=== PATIENT | male | born 1985 | race Caucasian/White ===

== ENCOUNTER → 2016-10-28 | Outpatient (CLI) | payer OTHER ==
[~2016-10-28] MED LIST: ESOM20CA PO; HYDR-5688 PO; PROM25TA9 PO; SINCALIDE INJ 2.1 MCG in SODIUM CHLORIDE 0.9% 100ML 100 ML IV ONE
--- NOTE | 2016-10-28 14:26 | DIAGNOSTIC IMAGING REPORT ---
NUCLEAR HEPATOBILIARY SCAN WITH EJECTION FRACTION IMAGING CLINICAL HISTORY: Right upper quadrant abdominal pain. COMPARISON STUDY: No priors. TECHNIQUE: Dynamic images of the liver and anterior abdomen were obtained every 5 minutes for a total of 60 minutes following the IV administration of 5.3mCi of technetium 99m Choletec. 2.1 mcg of sincalide was then injected with additional images acquired every 5 minutes for 45 minutes to calculate the gallbladder ejection fraction. FINDINGS: The hepatobiliary scan shows prompt and homogeneous hepatic uptake. There is visualized activity within the intra and extrahepatic biliary tree at 10 minutes, and within the gallbladder at 10 minutes. There is normal biliary to bowel transit, with small bowel visualized by 16 minutes. On the sincalide imaging, the gallbladder ejection fraction was measured at 31%. IMPRESSION: 1. There is no scintigraphic evidence of cholecystitis. 2. The gallbladder ejection fraction measured 31% which is slightly diminished (normal is 35% or greater). Electronically signed by: Al Dunbar M.D. 10/28/2016 2:23 PM Dictated Date/Time: 10/28/2016 2:21 PM
== END | disposition home or self-care (01) ==
LOC: C.NUCL 07:38
PROVIDERS: ATTEND Internal Medicine
DX: R10.9 Unspecified abdominal pain (principal)

== ENCOUNTER → 2016-11-15 | Day surgery (SDC) | payer OTHER ==
[2016-11-03 12:01] VITALS: BMI 32.0
[~2016-11-15] VITALS: Ht 180.3 cm; Wt 104.5 kg
[~2016-11-15] MED LIST changes: +FENTANYL CITRATE INJ 50 MCG/1 ML 2 ML VIAL ONE; +MIDAZOLAM HCL 5 MG/ML 1 ML VIAL ONE; -SINCALIDE INJ 2.1 MCG in SODIUM CHLORIDE 0.9% 100ML 100 ML IV ONE; +SODIUM CHLORIDE 0.9% 500ML 500 ML IV ONE
[2016-11-15 11:07] VITALS: Ht 180.3 cm; Wt 104.5 kg
[2016-11-15 11:12] VITALS: TEMP 36.6
--- NOTE | 2016-11-15 11:45 | Endo History and Physical ---
History & Physical Date of Service: Nov 15, 2016. Chief Complaint: abdominal pain Referring Physician: KIMBERLEE Bui History of Present Illness 30 yo CM who presents for EGD secondary to abdominal pain. Past Surgical History Hx Cardiac Surgery: No Hx Internal Defibrillator: No Hx Pacemaker: No Hx Abdominal Surgery: No Hx of Implantable Prosthesis: No Hx Post-Op Nausea and Vomiting: No Hx Cancer Surgery: No Hx Thoracic Surgery: No Hx Orthopedic: No Hx Urinary Tract Surgery: No Family History IBD Social History Smoking Status: Never Smoker Hx Substance Use: No Hx Alcohol Use: Yes (OCCASSIONALLY) Allergies Coded Allergies: No Known Allergies (Verified , 11/15/16) Current Medications Reported Home Medications Medications Dose Route/Sig Max Daily Dose Days Date Category Nexium (Esomeprazole Magnesium) 20 Mg Capcr 20 Mg PO DAILY 11/15/16 Reported Vital Signs Weight (Kilograms): 104.55 Height (Feet): 5 Height (Inches): 11 Date Time Temp Pulse Resp B/P Pulse Ox O2 Delivery O2 Flow Rate FiO2 11/15/16 11:39 80 20 154/88 98 Room Air 11/15/16 11:12 36.6 80 18 156/82 100 Room Air Physical Exam General Appearance: WD/WN, no apparent distress Respiratory/Chest: Auscultation: breath sounds normal Cardiovascular: Heart Auscultation: RRR Abdomen: Bowel Sounds: normal Inspection & Palpation: soft, non-distended, no tenderness, guarding & rebound Assessment and Plan Assessment: 30 yo CM who presents for EGD secondary to abdominal pain. Plan: Proceed with EGD.
--- NOTE | 2016-11-15 12:09 | Discharge Instructions ---
Endoscopy Patient Instructions Date / Procedure(s) Performed Nov 15, 2016. EGD Allergy Information Coded Allergies: No Known Allergies (Verified , 11/15/16) Discharge Date / Findings Nov 15, 2016. Reflux esophagitis Hiatal hernia Medication Instructions OK to resume all medications today as prescribed Reported Home Medications Medications Dose Route/Sig Max Daily Dose Days Date Category Nexium (Esomeprazole Magnesium) 20 Mg Capcr 20 Mg PO DAILY 11/15/16 Reported Provider Instructions Activity Restrictions - No exercising or heavy lifting for 24 hours. - Do not drink alcohol the day of the procedure. - Do not drive a car or operate machinery until the day after the procedure. - Do not make any important decisions or sign important papers in 24 hours after the procedure. Following Day: - Return to full activity which may include returning to work/school. Diet Start your diet with liquids and light foods (jello, soup, juice, toast). Then eat your usual diet if not nauseated. Treatment For Common After Affects For mild abdominal pain, bloating, or excessive gas: - Rest - Eat lightly - Lie on right side Follow-Up Information Follow-up with KIMBERLEE Bui as scheduled Anesthesia Information What You Should Know You have had a procedure that required some medicine to reduce anxiety and discomfort. This treatment is called moderate sedation. After receiving the treatment, you may be sleepy, but you will be able to breathe on your own. The effects of the treatment may last for several hours. Follow these instructions along with Activity/Diet recommendations noted above: * Do NOT do anything where dizziness or clumsiness would be dangerous. * Rest quietly at home today, then you can be up and about tomorrow. * Have a responsible person stay with you the rest of today. * You may have had an I.V. today. If so, you may take the dressing off later today. Recommendations Call your doctor if: * Trouble breathing * Continuous vomiting for more than 24 hours * Temperature above 101 degrees * Severe abdominal pain or bloating * Pain not relieved by pain medicine ordered * There is increased drainage or redness from any incision * A large amount of rectal bleeding greater than 2-3 tablespoons. (If you had a polyp/s removed or have hemorrhoids, a small amount of blood - from the rectum is to be expected.) * You have any unanswered questions or concerns. IN THE EVENT OF A SERIOUS EMERGENCY, GO TO THE NEAREST EMERGENCY ROOM Your discharge instructions were prepared by provider Camron Montgomery. Patient Instructions Signature Page Jose Nair Patient (or Guardian) Signature/Date: I have read and understand the instructions given to me by my caregivers. Caregiver/RN/Doctor Signature/Date: The above-named patient and/or guardian has received patient instructions on this date. + Original Patient Signature Page (only) stays with chart. Please make copy for patient.
--- NOTE | 2016-11-15 12:09 | GI REPORT ---
Procedure Date: 11/15/2016 11:26 AM Procedure: Upper GI endoscopy Indications: Epigastric abdominal pain Medicines: Fentanyl 150 micrograms IV, Midazolam 8 mg IV Complications: No immediate complications. Estimated Blood Loss: Estimated blood loss: none. Procedure: Pre-Anesthesia Assessment: - Prior to the procedure, a History and Physical was performed, and patient medications and allergies were reviewed. The patient's tolerance of previous anesthesia was also reviewed. The risks and benefits of the procedure and the sedation options and risks were discussed with the patient. All questions were answered, and informed consent was obtained. Prior Anticoagulants: The patient has taken no previous anticoagulant or antiplatelet agents. ASA Grade Assessment: I - A normal, healthy patient. After reviewing the risks and benefits, the patient was deemed in satisfactory condition to undergo the procedure. After obtaining informed consent, the endoscope was passed under direct vision. Throughout the procedure, the patient's blood pressure, pulse, and oxygen saturations were monitored continuously. The scope was introduced through the mouth, and advanced to the second part of duodenum. The upper GI endoscopy was accomplished without difficulty. The patient tolerated the procedure well. Findings: LA Grade B (one or more mucosal breaks greater than 5 mm, not extending between the tops of two mucosal folds) esophagitis with no bleeding was found. A small hiatus hernia was present. The examined duodenum was normal. Impression: - LA Grade B reflux esophagitis. - Small hiatus hernia. - Normal examined duodenum. - No specimens collected. Recommendation: - Resume previous diet. - Continue present medications. - Return to GI office as previously scheduled. Camron Montgomery DO 11/15/2016 12:09:19 PM This report has been signed electronically. Note Initiated On: 11/15/2016 11:26 AM I attest to the content of the Intraoperative Record and orders documented therein, exceptions below
[2016-11-15 12:45] VITALS: BP 121/76; PULSE 78; O2SAT 100
== END | disposition home or self-care (01) ==
LOC: C.GI 10:47
PROVIDERS: ATTEND Internal Medicine
DX: K21.0 Gastro-esophageal reflux disease with esophagitis (principal); K44.9 Diaphragmatic hernia without obstruction or gangrene; R10.13 Epigastric pain

== ENCOUNTER 2016-12-15 05:14 | Observation (INO) | payer OTHER ==
[2016-12-08 10:11] VITALS: BMI 32.0
[2016-12-15] VITALS (7 sets, daily range): BP systolic 127–149; BP diastolic 79–87; PULSE 63–73; TEMP 36.5–37.1; O2SAT 93–97; Ht 180.3 cm; Wt 104.5 kg
[~2016-12-15] VITALS: Ht 180.3 cm; Wt 104.5 kg
[~2016-12-15 05:14] MED LIST changes: -FENTANYL CITRATE INJ 50 MCG/1 ML 2 ML VIAL ONE; -HYDR-5688 PO; -MIDAZOLAM HCL 5 MG/ML 1 ML VIAL ONE; -PROM25TA9 PO; -SODIUM CHLORIDE 0.9% 500ML 500 ML IV ONE
[2016-12-15 05:47] LABS: HEMATOCRIT 44.4 % (42-52); MEAN CELL VOLUME 84.6 fL (80-100); MEAN CORPUSCULAR HEMOGLOBIN 30.7 pg (25-34); MEAN PLATELET VOLUME 10.4 fL (7.4-10.4); PLATELET COUNT 297 K/uL (130-400); RED BLOOD COUNT 5.25 M/uL (4.7-6.1)
[2016-12-15 05:50] LABS: MEAN CORPUSCULAR HGB CONC 36.3 g/dl (32-36)
[2016-12-15] MEDS ORDERED: LACTATED RINGER'S 1000ML 1,000 ML IV SCH ×2 (06:00→07:57)
[2016-12-15] MEDS ORDERED: CEFUROXIME IV 1,500 MG in DEXTROSE 5% 100ML IV SCH (06:00)
[2016-12-15] MEDS ORDERED: ACETAMINOPHEN 1000 MG/100 ML IV IV ONE (06:04)
[2016-12-15] MEDS ORDERED: MIDAZOLAM HCL 1 MG/ML 2ML VIAL ONE (06:14)
[2016-12-15] MEDS ORDERED: LIDOCAINE HCL 2% 2 ML VIAL (20MG/ML) ONE (06:14)
[2016-12-15] MEDS ORDERED: DEXAMETHASONE SOD INJ 4 MG/ML VIAL ONE (06:14)
[2016-12-15] MEDS ORDERED: PROPOFOL IV EMULSION 10 MG/ML 20 ML VIAL IV ONE ×2 (06:14→08:07)
[2016-12-15] MEDS ORDERED: SUCCINYLCHOLINE CHLORIDE 20 MG/ML 10 ML VIAL IV ONE (06:14)
[2016-12-15] MEDS ORDERED: PHENYLEPHRINE HCL INJ 10 MG/ML VIAL ONE (06:14)
[2016-12-15] MEDS ORDERED: NEOSTIGMINE METHYLSULFATE 5 MG/5 ML SYR ONE (06:14)
[2016-12-15] MEDS ORDERED: ROCURONIUM BROMIDE 10 MG/ML 5 ML VIAL ONE ×2 (06:14→08:07)
[2016-12-15] MEDS ORDERED: ONDANSETRON INJ 2 MG/ML 2 ML VIAL ONE (06:14)
[2016-12-15] MEDS ORDERED: GLYCOPYRROLATE INJ 0.2 MG/ML VIAL ONE (06:14)
[2016-12-15] MEDS ORDERED: FENTANYL CITRATE INJ 50 MCG/1 ML 2 ML VIAL ONE (06:14)
--- NOTE | 2016-12-15 06:31 | History & Physical Bridge Note ---
H&P Re-Evaluation Bridge Note: I have examined the patient, reviewed the History & Physical and in the interval since the performance of the History & Physical I have noted the following changes of clinical significance: No changes noted
[2016-12-15] MEDS ORDERED: BUPIVACAINE 0.5 % 5 MG/1 ML MPF 30ML VIAL ONE (06:38)
[2016-12-15] MEDS ORDERED: HYDROmorphone INJ 2 MG/ML SYR/VIAL ONE (07:08)
--- NOTE | 2016-12-15 07:57 | [facility] Post Operative Brief Note ---
Immediate Operative Summary Operative Date Dec 15, 2016. Pre-Operative Diagnosis Chronic Cholecystitis Post-Operative Diagnosis same, adhesions Procedure(s) Performed Laparoscopic Cholecystectomy Surgeon Dr. Uli Schroeder Construction Superintendent Surgeon(s) Filemon Sandoval PA-C Estimated Blood Loss 10ml Findings adhesions Specimens A.) Gallbladder and contents Anesthesia gen Complication(s) None Disposition Recovery Room / PACU
[2016-12-15] MEDS ORDERED: PROMETHAZINE HCL INJ 25 MG in SODIUM CHLORIDE 0.9% 50ML 50 ML IV PRN (08:00)
[2016-12-15] MEDS ORDERED: ONDANSETRON INJ 2 MG/ML 2 ML VIAL IV PRN ×2 (08:00→08:15)
[2016-12-15] MEDS ORDERED: MoRPHine SULFATE 2 MG/ML CARP IV PRN (08:00)
[2016-12-15] MEDS ORDERED: MoRPHine SULFATE 4 MG/ML 1 ML CARP\\VIAL IV PRN (08:00)
[2016-12-15] MEDS ORDERED: HYDROCODONE/ACETAMOPHEN 5/325MG TAB PO PRN ×2 (08:00)
--- NOTE | 2016-12-15 08:04 | Discharge Instructions ---
Discharge Instructions Date of Service Dec 15, 2016. Admission Reason for Admission: Biliary Colic, Abnormal Hida Scan Discharge Discharge Diagnosis / Problem: chronic cholecystitis Discharge Goals Goal(s): Decrease discomfort, Improve function, Improve disease control Activity Recommendations Activity Limitations: as noted below Lifting Limitations: no more than 25 pounds Exercise/Sports Limitations: until after follow-up appointment May Resume Sexual Activity: when tolerated Shower/Bathe: tomorrow (no bath for 1 week) Driving or Machine Use: resume 3 days after discharge SPECIAL CARE INSTRUCTIONS: * Cover incisions and change daily for comfort/drainage. may leave uncovered with dermabond * May use ibuprofen for pain as tolerated. * Expect some swelling and bruising. Call your doctor if: * Temperature above 101 degrees * Pain not relieved by pain medicine ordered * There is increased drainage or redness from any incision * You have any unanswered questions or concerns [phone]. FOLLOW UP VISIT: If not already scheduled, please call the office for a follow-up visit. for 2 weeks- check up- no sutures to remove OFFICE PHONE NUMBER: Dr. Schroeder Office . Current Hospital Diet Patient's current hospital diet: Regular Diet Discharge Diet Recommended Diet: Regular Diet Procedures Procedures Performed: Laparoscopic Cholecystectomy Pending Studies Studies pending at discharge: no Medical Emergencies . Who to Call and When: Medical Emergencies: If at any time you feel your situation is an emergency, please call 911 immediately. . Non-Emergent Contact Non-Emergency issues call your: Surgeon . "Provider Documentation" section prepared by Uli Schroeder. VTE Core Measure Inpt VTE Proph given/why not?: SCD's
[2016-12-15] MEDS ORDERED: HYDR-5688 PO (08:06)
[2016-12-15] MEDS ORDERED: PROM25TA9 PO (08:06)
[2016-12-15] MEDS ORDERED: PROMETHAZINE HCL INJ 6.25 MG in SODIUM CHLORIDE 0.9% 50ML 50 ML IV PRN (08:15)
[2016-12-15] MEDS ORDERED: EpHEDrine SULFATE INJ 50 MG/ML AMP IV PRN (08:15)
[2016-12-15] MEDS ORDERED: FENTANYL CITRATE INJ 50 MCG/1 ML 2 ML VIAL IV PRN (08:15)
[2016-12-15] MEDS ORDERED: HYDROmorphone INJ 1 MG/ML SYR IV PRN (08:15)
[2016-12-15] MEDS ORDERED: KETOROLAC TROMETHAMINE 30 MG/ML VIAL IV. SCH (08:15)
[2016-12-15] MEDS ORDERED: ATROPINE SULFATE 0.1 MG/ML 5ML SYR IV PRN (08:15)
--- NOTE | 2016-12-15 08:49 | Anesthesiology Progress Note ---
Anesthesia Post Op Note Date & Time Dec 15, 2016 at 08:50 Vital Signs Pain Intensity: 0 Vital Signs Past 12 Hours Date Time Temp Pulse Resp B/P Pulse Ox O2 Delivery O2 Flow Rate FiO2 12/15/16 08:43 68 15 12/15/16 08:43 70 15 98 12/15/16 08:40 118/65 12/15/16 08:38 66 14 12/15/16 08:38 67 14 97 12/15/16 08:35 124/65 12/15/16 08:33 61 17 12/15/16 08:33 62 17 98 12/15/16 08:30 126/64 12/15/16 08:28 62 13 97 12/15/16 08:28 62 13 12/15/16 08:25 109/63 12/15/16 08:24 36.7 61 20 109/63 96 Nasal Cannula 2 12/15/16 08:23 64 18 12/15/16 08:23 64 18 94 12/15/16 08:20 133/74 12/15/16 08:18 66 20 96 12/15/16 08:18 66 20 12/15/16 08:17 71 13 12/15/16 08:17 70 13 99 12/15/16 08:15 137/77 12/15/16 08:12 77 20 12/15/16 08:12 77 20 100 12/15/16 08:10 136/78 12/15/16 08:07 81 22 100 12/15/16 08:07 80 22 12/15/16 08:05 126/69 12/15/16 08:02 80 20 12/15/16 08:02 36.1 81 21 126/71 100 Mask 10 12/15/16 08:02 80 20 126/71 100 12/15/16 05:38 37.1 73 16 149/87 97 Room Air Notes Mental Status: alert / awake / arousable, participated in evaluation Pt Amnestic to Procedure: Yes Nausea / Vomiting: adequately controlled Pain: adequately controlled Airway Patency, RR, SpO2: stable & adequate BP & HR: stable & adequate Hydration State: stable & adequate Anesthetic Complications: no major complications apparent
--- NOTE | 2016-12-15 08:59 | OPERATIVE REPORT ---
DATE OF OPERATION: 12/15/2016 NAME OF OPERATION: Laparoscopic cholecystectomy. PREOPERATIVE DIAGNOSIS: Biliary dyskinesia. POSTOPERATIVE DIAGNOSIS: Same with chronic cholecystitis. STAFF SURGEON: Dr. Schroeder. TILE ROOFER: Filemon Sandoval PA-C. ANESTHESIA: General. PROCEDURE: The patient was brought in the operating room and placed on the operating table in supine position. His abdomen was prepped and draped in usual fashion. Pneumatic stockings and orogastric tube were placed. Using 0.5% plain Marcaine, all incisions were anesthetized. Incision was made above the umbilicus, carrying dissection down to the fascia, placing a Veress needle, producing pneumoperitoneum. An 11 mm port was placed at this level and then the patient was placed in reverse Trendelenburg position, rotated to the left. Under visualization, three 5 mm ports were placed, 1 cephalad and 2 laterally, all under visualization. Gallbladder was grasped and retracted. There were adhesions to the gallbladder consistent with chronic inflammation. These were taken down. Gallbladder was aspirated of bile and then dissection carried out at the jess hepatis, identifying the cystic duct which was clipped and transected. The cystic artery, I think there were 2 small branches which were clipped and transected. Then, the gallbladder dissected away from the liver bed in the usual fashion. After appropriate hemostasis and irrigation, the gallbladder was placed into an Endobag and then removed through the umbilical site. All ports were removed. The umbilical fascia closed using interrupted 0 Vicryl suture, then the skin reapproximated using subcuticular 4-0 Monocryl and Dermabond. The patient was transferred to recovery room in stable condition. I attest to the content of the Intraoperative Record and any orders documented therein. Any exceptio ns are noted below.
[2016-12-15] MEDS ORDERED: IV FLUIDS COMPLETED PRN (10:00)
--- NOTE | 2016-12-15 14:46 | DISCHARGE SUMMARY ---
PRIMARY DISCHARGE DIAGNOSIS: Chronic cholecystitis. PROCEDURE PERFORMED: Laparoscopic appendectomy. HOSPITAL COURSE: The patient is a 31-year-old male with biliary dyskinesia, admitted through same day and taken to the operating room for laparoscopic cholecystectomy. He did have some omental adhesions to the gallbladder consistent with chronic cholecystitis. The procedure was well tolerated. He was transferred to the surgical floor for observation. That afternoon, he was tolerating diet and oral analgesics. He was anxious for discharge and was stable to return home. DISCHARGE INSTRUCTIONS: Discharge home. Follow up with Dr. Schroeder in 2 weeks. DISCHARGE MEDICATIONS: [place] 1-2 tablets every 6 hours as needed, Phenergan 25 mg p.o. q. 6 hours as needed and may resume his home Nexium 20 mg daily. MTDD
[2016-12-16] MEDS ORDERED: PANTOprazole SOD 40 MG TAB PO SCH (09:00)
== END 2016-12-15 11:40 | disposition home or self-care (01) ==
LOC: ENRESERVTM → ENRESERVDT → C.ACU 05:14 → C.MSW 07:59
PROVIDERS: ADMIT Surgery; ATTEND Surgery
DX: K81.1 Chronic cholecystitis (principal); K82.8 Other specified diseases of gallbladder; R94.8 Abnormal results of function studies of other organs and systems